=== PATIENT | male | born 1945 | race African-American/Black ===

== ENCOUNTER 2019-09-28 16:23 | Inpatient (IN) | payer MEDICARE, MEDICAID ==
[~2019-09-28] VITALS: Ht 175.3 cm; Wt 60.3 kg
[2019-09-28] MEDS ORDERED: SODIUM CHLORIDE 0.9% 1,000 ML IV ONE (16:45)
[2019-09-28 17:43] LABS: BASOPHILS % 0.4 % (0.0-2.0); EOSINOPHILS % 0.2 % (0.0-5.0); HEMOGLOBIN. 9.3 g/dL (14.0-18.0); LYMPHOCYTES % 10.7 % (20.0-50.0); MEAN CORPUSCULAR HEMOGLOBIN 33.1 pg (28.0-32.0); MEAN PLATELET VOLUME 7.8 fl (7.4-10.4); MONOCYTES % 7.1 % (2.0-8.0); NEUTROPHILS % 81.6 % (40.0-76.0); PLATELET 612 x1000/uL (130-400); RED BLOOD CELL COUNT 2.83 mill/uL (4.7-6.1); RED CELL DISTRIBUTION WIDTH 14.7 % (11.6-14.6)
[2019-09-28 17:44] LABS: CHLORIDE 114 mEq/L (98-107)
[2019-09-28 17:48] LABS: ETHANOL BLOOD < 10 mg/dL
[2019-09-28 17:48] LABS: CLARITY URINE CLOUDY (CLEAR); COLOR URINE YELLOW (YELLOW); KETONES URINE NEGATIVE (NEGATIVE); LEUKOCYTE ESTERASE URINE 2+ (NEGATIVE); NITRITE URINE POSITIVE (NEGATIVE); OCCULT BLOOD URINE 1+ (NEGATIVE); PROTEIN URINE 1+ (NEGATIVE); SPECIFIC GRAVITY URINE 1.021 (1.005-1.030)
[2019-09-28 17:57] LABS: *AMPHETAMINES SCREEN URINE NEGATIVE (NEGATIVE); *BARBITURATES SCREEN URINE NEGATIVE (NEGATIVE)
[2019-09-28 17:58] LABS: *BENZODIAZEPINES SCREEN URINE NEGATIVE (NEGATIVE); *COCAINE SCREEN URINE NEGATIVE (NEGATIVE); METHADONE URINE SCREEN NEGATIVE (NEGATIVE); OPIATES URINE SCREEN NEGATIVE (NEGATIVE)
[2019-09-28 17:59] LABS: CANNABINOID URINE SCREEN NEGATIVE (NEGATIVE); PHENCYCLIDINE URINE SCREEN NEGATIVE (NEGATIVE)
[2019-09-28] MEDS ORDERED: CEFTRIAXONE 1 G PREMIX 50 ML IV ONE (18:15)
[2019-09-28] MEDS ORDERED: NA PHOS,M-B/NA PHOS,DI-BA ENEMA 118ML PR PRN (19:15)
[2019-09-28] MEDS ORDERED: HYDROCODONE/ACETAMINOPHEN 10/325MG TABLET PO PRN (19:15)
[2019-09-28] MEDS ORDERED: ONDANSETRON HCL 4MG/2ML INJ IV PRN (19:15)
[2019-09-28] MEDS ORDERED: MAGNESIUM/ALUMINUM HYDROXIDE/SIMETHICONE 30ML UDC PO PRN (19:15)
[2019-09-28] MEDS ORDERED: LORAZEPAM 2MG/ML CPJ IV PRN (19:15)
[2019-09-28] MEDS ORDERED: IPRATROPIUM/ALBUTEROL 0.5-3(2.5)MG/3ML NEB NEB PRN (19:15)
[2019-09-28] MEDS ORDERED: HYDRALAZINE 20MG/ML VIAL IV PRN (19:15)
[2019-09-28] MEDS ORDERED: DOCUSATE SODIUM 100MG CAPSULE PO PRN (19:15)
[2019-09-28] MEDS ORDERED: GUAIFENESIN 200MG/10ML SUGAR FREE UDC PO PRN (19:15)
[2019-09-28] MEDS ORDERED: DIPHENHYDRAMINE 50MG/ML VIAL IV PRN (19:15)
[2019-09-28] MEDS ORDERED: CLONIDINE 0.1MG TABLET PO PRN (19:15)
[2019-09-28] MEDS ORDERED: CEFTRIAXONE 1 G PREMIX 50 ML IV SCH (19:15)
[2019-09-28] MEDS ORDERED: DEXTROSE 50% WATER 50ML SYRINGE IV PRN (19:15)
[2019-09-28] MEDS: INSULIN LISPRO 100 UNITS/ML SUBCUT SCH (21:00)
[2019-09-28] MEDS: BLOOD SUGAR DIAGNOSTIC STRIP TEST SCH (21:00)
[2019-09-28] MEDS: MORPHINE SULFATE 2 MG/ML CPJ (NOT FOR IM USE) IV PRN (21:28)
[2019-09-28] MEDS ORDERED: ASPIRIN 325MG EC TABLET PO ONE (22:15)
[2019-09-28 23:17] VITALS: BP 98/92
[2019-09-28 23:35] LABS: CREATINE KINASE MB FRACTION 4.7 ng/mL (0.5-3.6)
[2019-09-28 23:45] LABS: CREATINE KINASE 1203 IU/L (39-308)
[2019-09-28] MEDS: ENOXAPARIN 40MG/0.4ML SYR SUBCUT SCH (23:47)
[2019-09-28] MEDS: SODIUM CHLORIDE 0.9% INJ 3ML FLUSH IVF SCH (23:48)
[2019-09-29 04:00] VITALS: BP 104/65
[2019-09-29] MEDS: SODIUM CHLORIDE 0.9% INJ 3ML FLUSH IVF SCH ×3 (05:35→21:15)
[2019-09-29] MEDS: MORPHINE SULFATE 2 MG/ML CPJ (NOT FOR IM USE) IV PRN (06:13)
[2019-09-29 07:10] LABS: BASOPHILS % 0.7 % (0.0-2.0); EOSINOPHILS % 0.8 % (0.0-5.0); HEMATOCRIT. 22.8 % (42.0-52.0); HEMOGLOBIN. 7.5 g/dL (14.0-18.0); LYMPHOCYTES % 23.5 % (20.0-50.0); MEAN CORPUSCULAR HEMOGLOBIN 32.5 pg (28.0-32.0); MEAN CORPUSCULAR VOLUME 99.1 fL (80.0-94.0); MEAN PLATELET VOLUME 7.8 fl (7.4-10.4); MONOCYTES % 8.5 % (2.0-8.0); NEUTROPHILS % 66.5 % (40.0-76.0); PLATELET 480 x1000/uL (130-400); RED CELL DISTRIBUTION WIDTH 14.9 % (11.6-14.6)
[2019-09-29 07:20] LABS: CHLORIDE 113 mEq/L (98-107)
[2019-09-29 07:36] LABS: LDL CHOLESTEROL 82 mg/dL (5-100)
[2019-09-29 07:37] LABS: CREATINE KINASE 855 IU/L (39-308)
[2019-09-29 07:38] LABS: CREATINE KINASE MB FRACTION 2.4 ng/mL (0.5-3.6); HDL CHOLESTEROL 30 mg/dL (40-59); T4 FREE 1.05 ng/dL (0.76-1.46)
[2019-09-29] MEDS: BLOOD SUGAR DIAGNOSTIC STRIP TEST SCH ×4 (07:58→21:00)
[2019-09-29] MEDS: INSULIN LISPRO 100 UNITS/ML SUBCUT SCH ×4 (07:58→21:00)
[2019-09-29 08:00] VITALS: BP 107/65
[2019-09-29] MEDS ORDERED: INFLUENZA VIRUS VACCINE(AFLURIA) 0.5ML SYR IM ONE (08:00)
[2019-09-29] MEDS ORDERED: PNEUMOCOCCAL 23-VAL P-SAC VAC 0.5 ML IM ONE (08:00)
[2019-09-29] MEDS ORDERED: POTASSIUM CHLORIDE 20MEQ/PACKET PO SCH (10:00)
[2019-09-29] MEDS: CLOPIDOGREL 75MG TABLET PO SCH (11:30)
[2019-09-29] MEDS: QUETIAPINE FUMARATE 25MG TABLET PO SCH (11:30)
[2019-09-29 12:00] VITALS: BP 100/63
[2019-09-29 12:25] LABS: T4 FREE 1.07 ng/dL (0.76-1.46)
[2019-09-29 15:38] LABS: CREATINE KINASE 779 IU/L (39-308)
[2019-09-29 15:39] LABS: CREATINE KINASE MB FRACTION 1.9 ng/mL (0.5-3.6)
[2019-09-29 16:00] VITALS: BP 102/58
[2019-09-29] MEDS: CEFTRIAXONE 1 G PREMIX 50 ML IV SCH (17:52)
[2019-09-29 19:29] LABS: VITAMIN B12 SERUM 478 pg/mL (211-911)
[2019-09-29 20:00] VITALS: BP 94/48
[2019-09-29] MEDS: ENOXAPARIN 40MG/0.4ML SYR SUBCUT SCH (20:58)
[2019-09-30] VITALS: BP 105/65
[2019-09-30 00:52] LABS: CREATINE KINASE 638 IU/L (39-308); CREATINE KINASE MB FRACTION 1.1 ng/mL (0.5-3.6)
[2019-09-30 04:00] VITALS: BP 101/63
[2019-09-30] MEDS: SODIUM CHLORIDE 0.9% INJ 3ML FLUSH IVF SCH ×3 (05:44→21:39)
[2019-09-30] MEDS: MORPHINE SULFATE 2 MG/ML CPJ (NOT FOR IM USE) IV PRN (06:31)
[2019-09-30] MEDS: BLOOD SUGAR DIAGNOSTIC STRIP TEST SCH ×4 (07:39→21:35)
[2019-09-30] MEDS: INSULIN LISPRO 100 UNITS/ML SUBCUT SCH ×4 (07:40→21:00)
[2019-09-30 08:00] VITALS: BP 98/59
[2019-09-30 08:25] LABS: CREATINE KINASE 551 IU/L (39-308)
[2019-09-30] MEDS ORDERED: ASPIRIN 81MG TABLET PO SCH (09:00)
[2019-09-30] MEDS: CLOPIDOGREL 75MG TABLET PO SCH (09:41)
[2019-09-30] MEDS: QUETIAPINE FUMARATE 25MG TABLET PO SCH (09:41)
[2019-09-30 12:00] VITALS: BP 100/66
[2019-09-30 16:00] VITALS: BP 105/65
[2019-09-30] MEDS: CEFTRIAXONE 1 G PREMIX 50 ML IV SCH (18:03)
[2019-09-30 20:00] VITALS: BP 99/67
[2019-09-30] MEDS: ENOXAPARIN 40MG/0.4ML SYR SUBCUT SCH (21:39)
[2019-10-01] VITALS (9 sets, daily range): BP systolic 101–110; BP diastolic 56–70
[2019-10-01] MEDS: SODIUM CHLORIDE 0.9% INJ 3ML FLUSH IVF SCH ×3 (06:13→22:00)
[2019-10-01 07:11] LABS: BASOPHILS % 0.6 % (0.0-2.0); EOSINOPHILS % 1.2 % (0.0-5.0); HEMATOCRIT. 25.9 % (42.0-52.0); HEMOGLOBIN. 8.4 g/dL (14.0-18.0); LYMPHOCYTES % 18.1 % (20.0-50.0); MEAN CORPUSCULAR HEMOGLOBIN 31.7 pg (28.0-32.0); MEAN CORPUSCULAR VOLUME 97.1 fL (80.0-94.0); MEAN PLATELET VOLUME 8.2 fl (7.4-10.4); MONOCYTES % 6.4 % (2.0-8.0); NEUTROPHILS % 73.7 % (40.0-76.0); PLATELET 430 x1000/uL (130-400); RED BLOOD CELL COUNT 2.66 mill/uL (4.7-6.1); RED CELL DISTRIBUTION WIDTH 15.6 % (11.6-14.6)
[2019-10-01] MEDS: BLOOD SUGAR DIAGNOSTIC STRIP TEST SCH ×4 (07:42→21:00)
[2019-10-01] MEDS: INSULIN LISPRO 100 UNITS/ML SUBCUT SCH ×4 (07:43→21:00)
[2019-10-01] MEDS: QUETIAPINE FUMARATE 25MG TABLET PO SCH (09:21)
[2019-10-01] MEDS: CEFTRIAXONE 1 G PREMIX 50 ML IV SCH (17:46)
[2019-10-01] MEDS: ENOXAPARIN 40MG/0.4ML SYR SUBCUT SCH (22:05)
[2019-10-02 00:05] VITALS: BP 94/56
[2019-10-02] MEDS: BLOOD SUGAR DIAGNOSTIC STRIP TEST SCH ×4 (07:40→21:42)
[2019-10-02] MEDS: INSULIN LISPRO 100 UNITS/ML SUBCUT SCH ×4 (08:10→21:00)
[2019-10-02] MEDS: SODIUM CHLORIDE 0.9% INJ 3ML FLUSH IVF SCH ×3 (10:59→21:44)
[2019-10-02] MEDS: QUETIAPINE FUMARATE 25MG TABLET PO SCH (11:00)
[2019-10-02 12:00] VITALS: BP 100/60
[2019-10-02] MEDS: ACETAMINOPHEN 325MG TABLET PO PRN (12:04)
[2019-10-02 16:00] VITALS: BP 110/70
[2019-10-02] MEDS: CEFTRIAXONE 1 G PREMIX 50 ML IV SCH (18:12)
[2019-10-02 20:00] VITALS: BP 101/58
[2019-10-02] MEDS: ENOXAPARIN 40MG/0.4ML SYR SUBCUT SCH (21:42)
[2019-10-03] VITALS: BP 108/64
[2019-10-03 04:00] VITALS: BP 91/56
[2019-10-03] MEDS: SODIUM CHLORIDE 0.9% INJ 3ML FLUSH IVF SCH ×3 (05:54→20:25)
[2019-10-03] MEDS: INSULIN LISPRO 100 UNITS/ML SUBCUT SCH ×4 (05:54→21:00)
[2019-10-03] MEDS: BLOOD SUGAR DIAGNOSTIC STRIP TEST SCH ×4 (05:54→20:25)
[2019-10-03 08:00] VITALS: BP 111/73
[2019-10-03] MEDS: QUETIAPINE FUMARATE 25MG TABLET PO SCH (08:55)
[2019-10-03 10:04] LABS: CHLORIDE 107 mEq/L (98-107)
[2019-10-03 10:07] LABS: MEAN CORPUSCULAR HEMOGLOBIN 31.4 pg (28.0-32.0); MEAN CORPUSCULAR VOLUME 97.4 fL (80.0-94.0); MEAN PLATELET VOLUME 8.4 fl (7.4-10.4); PLATELET 394 x1000/uL (130-400); RED BLOOD CELL COUNT 3.21 mill/uL (4.7-6.1); RED CELL DISTRIBUTION WIDTH 15.8 % (11.6-14.6)
[2019-10-03 10:09] LABS: HEMATOCRIT. 31.3 % (42.0-52.0); HEMOGLOBIN. 10.1 g/dL (14.0-18.0)
[2019-10-03 10:12] LABS: HAPTOGLOBIN 110 mg/dL (30-200)
[2019-10-03 10:47] LABS: PLATELET ESTIMATE NORMAL
[2019-10-03 12:00] VITALS: BP 108/59
[2019-10-03] MEDS: LOPERAMIDE HCL 2MG CAPSULE PO PRN (12:27)
[2019-10-03] MEDS: ACETAMINOPHEN 325MG TABLET PO PRN ×2 (12:27→20:43)
[2019-10-03 16:00] VITALS: BP 99/48
[2019-10-03] MEDS ORDERED: POTASSIUM CHLORIDE 20MEQ TABLET SR PO NR (18:24)
[2019-10-03] MEDS: CEFTRIAXONE 1 G PREMIX 50 ML IV SCH (18:34)
[2019-10-03 20:00] VITALS: BP 99/57
[2019-10-03] MEDS: ENOXAPARIN 40MG/0.4ML SYR SUBCUT SCH (20:25)
[2019-10-03] MEDS: METRONIDAZOLE 500 MG PREMIX 100 ML IV SCH (22:00)
[2019-10-04] VITALS: BP 95/56
[2019-10-04] MEDS: METRONIDAZOLE 500 MG PREMIX 100 ML IV SCH ×3 (03:44→20:26)
[2019-10-04 04:00] VITALS: BP 92/48
[2019-10-04] MEDS: SODIUM CHLORIDE 0.9% INJ 3ML FLUSH IVF SCH ×3 (05:17→21:05)
[2019-10-04] MEDS: BLOOD SUGAR DIAGNOSTIC STRIP TEST SCH ×4 (07:40→21:05)
[2019-10-04 08:00] VITALS: BP 99/56
[2019-10-04] MEDS: INSULIN LISPRO 100 UNITS/ML SUBCUT SCH ×4 (08:10→21:00)
[2019-10-04] MEDS: QUETIAPINE FUMARATE 25MG TABLET PO SCH (09:06)
[2019-10-04 12:00] VITALS: BP 90/53
[2019-10-04] MEDS: VANCOMYCIN 750 MG PREMIX 150 ML IV SCH (13:32)
[2019-10-04 16:00] VITALS: BP 98/56
[2019-10-04] MEDS: CEFTRIAXONE 1 G PREMIX 50 ML IV SCH (17:17)
[2019-10-04 17:27] LABS: CHLORIDE 109 mEq/L (98-107)
[2019-10-04 20:00] VITALS: BP 93/52
[2019-10-04 20:57] LABS: HEMATOCRIT. 26.7 % (42.0-52.0); HEMOGLOBIN. 8.9 g/dL (14.0-18.0); MEAN CORPUSCULAR HEMOGLOBIN 31.8 pg (28.0-32.0); MEAN CORPUSCULAR VOLUME 95.7 fL (80.0-94.0); PLATELET 290 x1000/uL (130-400); RED BLOOD CELL COUNT 2.79 mill/uL (4.7-6.1); RED CELL DISTRIBUTION WIDTH 15.4 % (11.6-14.6)
[2019-10-04] MEDS: ACETAMINOPHEN 325MG TABLET PO PRN (21:02)
[2019-10-04] MEDS: ENOXAPARIN 40MG/0.4ML SYR SUBCUT SCH (21:04)
[2019-10-04 22:14] LABS: PLATELET ESTIMATE NORMAL
[2019-10-05] VITALS: BP 94/52
[2019-10-05] MEDS: VANCOMYCIN 750 MG PREMIX 150 ML IV SCH (00:54)
[2019-10-05 04:00] VITALS: BP 90/58
[2019-10-05] MEDS: METRONIDAZOLE 500 MG PREMIX 100 ML IV SCH ×3 (04:07→20:47)
[2019-10-05 04:08] LABS: OVA & PARASITE EXAM Final report (.)
[2019-10-05] MEDS: SODIUM CHLORIDE 0.9% INJ 3ML FLUSH IVF SCH ×3 (06:00→21:29)
[2019-10-05 08:00] VITALS: BP_SYST 82; BP_SYST 83; BP_DIAS 51; BP_DIAS 52
[2019-10-05] MEDS: INSULIN LISPRO 100 UNITS/ML SUBCUT SCH ×4 (08:10→21:00)
[2019-10-05] MEDS: BLOOD SUGAR DIAGNOSTIC STRIP TEST SCH ×4 (08:19→21:00)
[2019-10-05] MEDS: QUETIAPINE FUMARATE 25MG TABLET PO SCH (09:47)
[2019-10-05 12:00] VITALS: BP 87/49
[2019-10-05] MEDS: CEFTRIAXONE 1 G PREMIX 50 ML IV SCH (17:36)
[2019-10-05 20:00] VITALS: BP 107/58
[2019-10-05] MEDS: ENOXAPARIN 40MG/0.4ML SYR SUBCUT SCH (21:28)
[2019-10-05] MEDS: VANCOMYCIN 1 G PREMIX 200 ML IV SCH (23:41)
[2019-10-06] VITALS: BP 107/60
[2019-10-06] MEDS: METRONIDAZOLE 500 MG PREMIX 100 ML IV SCH ×3 (03:57→20:42)
[2019-10-06 04:00] VITALS: BP 90/56
[2019-10-06] MEDS: SODIUM CHLORIDE 0.9% INJ 3ML FLUSH IVF SCH ×3 (06:06→20:46)
[2019-10-06 07:14] LABS: CHLORIDE 112 mEq/L (98-107)
[2019-10-06] MEDS: BLOOD SUGAR DIAGNOSTIC STRIP TEST SCH ×4 (07:40→20:41)
[2019-10-06 08:00] VITALS: BP 90/50
[2019-10-06] MEDS: INSULIN LISPRO 100 UNITS/ML SUBCUT SCH ×4 (08:10→20:41)
[2019-10-06] MEDS ORDERED: SODIUM CHLORIDE 0.9% 250 ML IV ONE (08:30)
[2019-10-06] MEDS ORDERED: POTASSIUM CHLORIDE 20MEQ TABLET SR PO SCH (08:30)
[2019-10-06] MEDS: QUETIAPINE FUMARATE 25MG TABLET PO SCH (08:57)
[2019-10-06] MEDS: VANCOMYCIN 1 G PREMIX 200 ML IV SCH (10:22)
[2019-10-06 12:00] VITALS: BP 96/52
[2019-10-06 12:16] LABS: CLARITY URINE CLOUDY (CLEAR); COLOR URINE YELLOW (YELLOW); KETONES URINE NEGATIVE (NEGATIVE); LEUKOCYTE ESTERASE URINE 1+ (NEGATIVE); NITRITE URINE NEGATIVE (NEGATIVE); OCCULT BLOOD URINE NEGATIVE (NEGATIVE); PH URINE 5.5 (4.5-8.0); PROTEIN URINE TRACE (NEGATIVE); UROBILINOGEN URINE 0.2 E.U./dL (0.2-1.0)
[2019-10-06 16:00] VITALS: BP 98/60
[2019-10-06] MEDS: CEFTRIAXONE 1 G PREMIX 50 ML IV SCH (17:14)
[2019-10-06 20:00] VITALS: BP 96/59
[2019-10-06] MEDS: ENOXAPARIN 40MG/0.4ML SYR SUBCUT SCH (20:45)
[2019-10-06 21:43] LABS: BASOPHILS % 0.8 % (0.0-2.0); EOSINOPHILS % 2.2 % (0.0-5.0); HEMATOCRIT. 24.5 % (42.0-52.0); HEMOGLOBIN. 8.2 g/dL (14.0-18.0); LYMPHOCYTES % 12.2 % (20.0-50.0); MEAN CORPUSCULAR VOLUME 95.4 fL (80.0-94.0); MEAN PLATELET VOLUME 8.8 fl (7.4-10.4); MONOCYTES % 3.7 % (2.0-8.0); NEUTROPHILS % 81.1 % (40.0-76.0); PLATELET 260 x1000/uL (130-400); RED BLOOD CELL COUNT 2.57 mill/uL (4.7-6.1); RED CELL DISTRIBUTION WIDTH 15.8 % (11.6-14.6)
[2019-10-06 21:46] LABS: CHLORIDE 112 mEq/L (98-107)
[2019-10-07] VITALS: BP 95/53
[2019-10-07] MEDS: VANCOMYCIN 1 G PREMIX 200 ML IV SCH ×2 (00:21→11:27)
[2019-10-07 04:00] VITALS: BP 100/63
[2019-10-07] MEDS: METRONIDAZOLE 500 MG PREMIX 100 ML IV SCH ×2 (04:50→11:29)
[2019-10-07] MEDS: BLOOD SUGAR DIAGNOSTIC STRIP TEST SCH ×4 (06:24→20:06)
[2019-10-07] MEDS: INSULIN LISPRO 100 UNITS/ML SUBCUT SCH ×3 (06:24→20:06)
[2019-10-07 07:55] LABS: BASOPHILS % 0.6 % (0.0-2.0); EOSINOPHILS % 2.9 % (0.0-5.0); HEMATOCRIT. 23.7 % (42.0-52.0); HEMOGLOBIN. 7.8 g/dL (14.0-18.0); MEAN CORPUSCULAR HEMOGLOBIN 31.3 pg (28.0-32.0); MEAN CORPUSCULAR VOLUME 94.6 fL (80.0-94.0); MEAN PLATELET VOLUME 9.1 fl (7.4-10.4); MONOCYTES % 4.5 % (2.0-8.0); PLATELET 255 x1000/uL (130-400); RED CELL DISTRIBUTION WIDTH 15.9 % (11.6-14.6)
[2019-10-07 08:00] VITALS: BP 100/55
[2019-10-07 08:04] LABS: CHLORIDE 111 mEq/L (98-107)
[2019-10-07] MEDS: LOPERAMIDE HCL 2MG CAPSULE PO PRN (08:34)
[2019-10-07] MEDS: SODIUM CHLORIDE 0.9% INJ 3ML FLUSH IVF SCH ×2 (08:34→14:10)
[2019-10-07] MEDS: QUETIAPINE FUMARATE 25MG TABLET PO SCH (08:34)
[2019-10-07] MEDS ORDERED: POTASSIUM CHLORIDE 20MEQ TABLET SR PO SCH (11:15)
[2019-10-07 12:00] VITALS: BP 104/65
[2019-10-07] MEDS: VANCOMYCIN HCL 1000 MG/20 ML ORAL PO SCH ×3 (13:00→23:52)
[2019-10-07 16:00] VITALS: BP 100/60
[2019-10-07 20:00] VITALS: BP 98/63
[2019-10-07] MEDS: ENOXAPARIN 40MG/0.4ML SYR SUBCUT SCH (20:10)
[2019-10-08] VITALS: BP 103/66
[2019-10-08 04:00] VITALS: BP 96/64
[2019-10-08] MEDS: SODIUM CHLORIDE 0.9% INJ 3ML FLUSH IVF SCH (05:30)
[2019-10-08] MEDS: VANCOMYCIN HCL 1000 MG/20 ML ORAL PO SCH ×2 (05:30→11:31)
[2019-10-08 08:00] VITALS: BP 95/62
[2019-10-08] MEDS: BLOOD SUGAR DIAGNOSTIC STRIP TEST SCH ×2 (08:05→12:43)
[2019-10-08] MEDS: INSULIN LISPRO 100 UNITS/ML SUBCUT SCH ×2 (08:06→12:43)
[2019-10-08] MEDS: QUETIAPINE FUMARATE 25MG TABLET PO SCH (08:57)
[2019-10-08 12:00] VITALS: BP 97/62
[2019-10-08 12:46] VITALS: BP 105/65
== END 2019-10-08 14:18 | disposition home or self-care (01) | DRG 74 ==
LOC: ER 16:23 → 7WST 18:37 → EDBEDREQ 18:46 → ENRESERV 20:30
PROVIDERS: ADMIT Internal Medicine; ATTEND Internal Medicine
PROC: 30233N1 Transfusion of Nonautologous Red Blood Cells into Peripheral Vein, Percutaneous Approach (ICD-10-PCS; principal; 2019-10-01)
DX: G90.8 Other disorders of autonomic nervous system (principal); N39.0 Urinary tract infection, site not specified; M62.82 Rhabdomyolysis; I13.0 Hypertensive heart and chronic kidney disease with heart failure and stage 1 through stage 4 chronic kidney disease, or unspecified chronic kidney disease; I42.0 Dilated cardiomyopathy; I50.42 Chronic combined systolic (congestive) and diastolic (congestive) heart failure; E11.22 Type 2 diabetes mellitus with diabetic chronic kidney disease; E78.5 Hyperlipidemia, unspecified; E87.6 Hypokalemia; I25.10 Atherosclerotic heart disease of native coronary artery without angina pectoris; I45.10 Unspecified right bundle-branch block; J44.9 Chronic obstructive pulmonary disease, unspecified; N18.9 Chronic kidney disease, unspecified; D53.9 Nutritional anemia, unspecified; R32 Unspecified urinary incontinence; G89.29 Other chronic pain; F17.210 Nicotine dependence, cigarettes, uncomplicated; Z79.899 Other long term (current) drug therapy; Z95.1 Presence of aortocoronary bypass graft; Z86.73 Personal history of transient ischemic attack (TIA), and cerebral infarction without residual deficits
CPT/HCPCS: 36415; 70551; 71045; 80048; 80053; 80061; 80202; 80305; 80320; 81003; 82270; 82550; 82553; 82607; 82962; 83010; 83036; 83615; 83880; 84439; 84443; 84484; 85025; 85044; 85379; 86850; 86900; 86920; 87177; 87209; 87493; 90686; 90732; 93005; 93306; 93880; 93970; 95816; 96365; 97162; 99285; J0696; J1650; J2270; J2405; J3370; J3490; J7030; J7040; P9016; G0480

== ENCOUNTER 2020-04-29 01:24 | Inpatient (IN) | payer MEDICARE, MEDICAID ==
[~2020-04-29] VITALS: Ht 170.2 cm; Wt 65.4 kg
[2020-04-29] MEDS ORDERED: SODIUM CHLORIDE 0.9% 1,000 ML IV ONE (05:23)
[2020-04-29 06:01] LABS: BASOPHILS % 1.4 % (0.0-2.0); EOSINOPHILS % 5.1 % (0.0-5.0); HEMATOCRIT. 37.7 % (42.0-52.0); HEMOGLOBIN. 12.7 g/dL (14.0-18.0); LYMPHOCYTES % 52.6 % (20.0-50.0); MEAN CORPUSCULAR HEMOGLOBIN 34.8 pg (28.0-32.0); MEAN CORPUSCULAR VOLUME 102.9 fL (80.0-94.0); MEAN PLATELET VOLUME 8.5 fl (7.4-10.4); MONOCYTES % 14.3 % (2.0-8.0); NEUTROPHILS % 26.6 % (40.0-76.0); PLATELET 183 x1000/uL (130-400); RED BLOOD CELL COUNT 3.66 mill/uL (4.7-6.1); RED CELL DISTRIBUTION WIDTH 13.1 % (11.6-14.6)
[2020-04-29 06:04] LABS: CHLORIDE 112 mEq/L (98-107)
[2020-04-29] MEDS ORDERED: ASPIRIN 325MG EC TABLET PO ONE (07:15)
[2020-04-29] MEDS ORDERED: ACETAMINOPHEN 325MG TABLET PO PRN (09:00)
[2020-04-29] MEDS ORDERED: IPRATROPIUM/ALBUTEROL 0.5-3(2.5)MG/3ML NEB NEB PRN (09:00)
[2020-04-29] MEDS ORDERED: HYDROCODONE/ACETAMINOPHEN 5/325MG TABLET PO PRN (09:00)
[2020-04-29] MEDS ORDERED: CLONIDINE 0.1MG TABLET PO PRN (09:00)
[2020-04-29] MEDS ORDERED: DOCUSATE SODIUM 100MG CAPSULE PO PRN (09:00)
[2020-04-29] MEDS ORDERED: MAGNESIUM/ALUMINUM HYDROXIDE/SIMETHICONE 30ML UDC PO PRN (09:00)
[2020-04-29] MEDS: ENOXAPARIN 40MG/0.4ML SYR SUBCUT SCH (10:00)
[2020-04-29] MEDS: PANTOPRAZOLE SODIUM 40 MG/VIAL IV SCH (10:33)
[2020-04-29 11:22] LABS: CLARITY URINE CLEAR (CLEAR); COLOR URINE YELLOW (YELLOW); KETONES URINE NEGATIVE (NEGATIVE); LEUKOCYTE ESTERASE URINE 2+ (NEGATIVE); NITRITE URINE POSITIVE (NEGATIVE); OCCULT BLOOD URINE TRACE (NEGATIVE); PROTEIN URINE TRACE (NEGATIVE); SPECIFIC GRAVITY URINE 1.017 (1.005-1.030); UROBILINOGEN URINE 0.2 E.U./dL (0.2-1.0)
[2020-04-29 11:46] LABS: *AMPHETAMINES SCREEN URINE NEGATIVE (NEGATIVE); *BARBITURATES SCREEN URINE NEGATIVE (NEGATIVE)
[2020-04-29 11:47] LABS: *BENZODIAZEPINES SCREEN URINE NEGATIVE (NEGATIVE); *COCAINE SCREEN URINE NEGATIVE (NEGATIVE); METHADONE URINE SCREEN NEGATIVE (NEGATIVE); OPIATES URINE SCREEN NEGATIVE (NEGATIVE); PHENCYCLIDINE URINE SCREEN NEGATIVE (NEGATIVE)
[2020-04-29 11:48] LABS: CANNABINOID URINE SCREEN NEGATIVE (NEGATIVE)
[2020-04-29 15:39] LABS: CREATINE KINASE 347 IU/L (39-308)
[2020-04-29 19:27] LABS: T4 FREE 0.87 ng/dL (0.76-1.46)
[2020-04-29] MEDS ORDERED: IOHEXOL-350 100 ML BOTTLE ONE (22:52)
[2020-04-29 23:45] LABS: CREATINE KINASE 304 IU/L (39-308)
[2020-04-30] VITALS (13 sets, daily range): BP systolic 100–139; BP diastolic 68–96
[2020-04-30 07:16] LABS: BASOPHILS % 1.1 % (0.0-2.0); EOSINOPHILS % 1.6 % (0.0-5.0); HEMATOCRIT. 36.1 % (42.0-52.0); HEMOGLOBIN. 12.2 g/dL (14.0-18.0); LYMPHOCYTES % 27.6 % (20.0-50.0); MEAN CORPUSCULAR HEMOGLOBIN 34.8 pg (28.0-32.0); MEAN CORPUSCULAR VOLUME 102.7 fL (80.0-94.0); MEAN PLATELET VOLUME 9.3 fl (7.4-10.4); MONOCYTES % 10.2 % (2.0-8.0); NEUTROPHILS % 59.5 % (40.0-76.0); PLATELET 192 x1000/uL (130-400); RED BLOOD CELL COUNT 3.51 mill/uL (4.7-6.1)
[2020-04-30 07:33] LABS: CHLORIDE 112 mEq/L (98-107)
[2020-04-30 07:40] LABS: LDL CHOLESTEROL 103 mg/dL (5-100); PHOSPHORUS 2.9 mg/dL (2.5-4.9)
[2020-04-30 07:42] LABS: CREATINE KINASE 291 IU/L (39-308); HDL CHOLESTEROL 55 mg/dL (40-59)
[2020-04-30] MEDS: ASPIRIN 81MG TABLET PO SCH (08:57)
[2020-04-30] MEDS: PANTOPRAZOLE SODIUM 40 MG/VIAL IV SCH (08:57)
[2020-04-30] MEDS: ENOXAPARIN 40MG/0.4ML SYR SUBCUT SCH (08:58)
[2020-04-30] MEDS ORDERED: REGADENOSON 0.4 MG/5 ML IV SCH (10:30)
[2020-04-30] MEDS ORDERED: REGADENOSON 0.4 MG/5 ML IV ONE (11:28)
[2020-04-30] MEDS ORDERED: FLUTICASONE/VILANTEROL 200-25 BLST.W.DEV ORI SCH (12:00)
[2020-04-30] MEDS: CLOPIDOGREL 75MG TABLET PO SCH (15:44)
[2020-04-30] MEDS: CEFTRIAXONE 1 G PREMIX 50 ML IV SCH (15:44)
[2020-04-30] MEDS ORDERED: ATORVASTATIN CALCIUM 40MG TABLET PO SCH (21:00)
[2020-05-01] VITALS (9 sets, daily range): BP systolic 88–131; BP diastolic 28–88
[2020-05-01 05:38] LABS: CHLORIDE 109 mEq/L (98-107)
[2020-05-01 06:40] LABS: BASOPHILS % 0.9 % (0.0-2.0); EOSINOPHILS % 2.6 % (0.0-5.0); HEMATOCRIT. 37.9 % (42.0-52.0); LYMPHOCYTES % 34.5 % (20.0-50.0); MEAN CORPUSCULAR HEMOGLOBIN 35.2 pg (28.0-32.0); MEAN CORPUSCULAR VOLUME 102.7 fL (80.0-94.0); MEAN PLATELET VOLUME 9.8 fl (7.4-10.4); MONOCYTES % 10.3 % (2.0-8.0); NEUTROPHILS % 51.7 % (40.0-76.0); PLATELET 103 x1000/uL (130-400); RED BLOOD CELL COUNT 3.69 mill/uL (4.7-6.1); RED CELL DISTRIBUTION WIDTH 13.2 % (11.6-14.6)
[2020-05-01] MEDS ORDERED: FAMOTIDINE 20MG/2ML VIAL IV SCH (09:00)
[2020-05-01] MEDS: ASPIRIN 81MG TABLET PO SCH (09:04)
[2020-05-01] MEDS: CLOPIDOGREL 75MG TABLET PO SCH (09:04)
[2020-05-01] MEDS: ENOXAPARIN 40MG/0.4ML SYR SUBCUT SCH (09:04)
[2020-05-01] MEDS ORDERED: LEVO500T2 MT (10:06)
[2020-05-01] MEDS ORDERED: ASPI-1160 PO (10:07)
[2020-05-01] MEDS ORDERED: LOSA25TA26 MT (10:07)
[2020-05-01] MEDS ORDERED: CARV3.1242 MT (10:07)
[2020-05-01] MEDS: CEFTRIAXONE 1 G PREMIX 50 ML IV SCH (12:07)
== END 2020-05-01 20:00 | disposition home or self-care (01) | DRG 291 ==
LOC: ER 01:24 → MICUSO 08:42 → CANRESERV 19:41 → ENRESERV 19:41 → 3WST 04-30 00:39
PROVIDERS: ADMIT Internal Medicine; ATTEND Internal Medicine
PROC: 4A02XM4 Measurement of Cardiac Total Activity, External Approach (ICD-10-PCS; principal; 2020-04-30)
PROC: 3E033HZ Introduction of Radioactive Substance into Peripheral Vein, Percutaneous Approach (ICD-10-PCS; 2020-04-30)
DX: I11.0 Hypertensive heart disease with heart failure (principal); I50.21 Acute systolic (congestive) heart failure; N39.0 Urinary tract infection, site not specified; I43 Cardiomyopathy in diseases classified elsewhere; R07.89 Other chest pain; E87.8 Other disorders of electrolyte and fluid balance, not elsewhere classified; J44.9 Chronic obstructive pulmonary disease, unspecified; E78.5 Hyperlipidemia, unspecified; I25.10 Atherosclerotic heart disease of native coronary artery without angina pectoris; K40.90 Unilateral inguinal hernia, without obstruction or gangrene, not specified as recurrent; Z86.73 Personal history of transient ischemic attack (TIA), and cerebral infarction without residual deficits; Z87.891 Personal history of nicotine dependence; B96.20 Unspecified Escherichia coli [E. coli] as the cause of diseases classified elsewhere; I34.0 Nonrheumatic mitral (valve) insufficiency
CPT/HCPCS: 36415; 71045; 71275; 72170; 78452; 80048; 80053; 80061; 80305; 81003; 82550; 83036; 83735; 83880; 84100; 84439; 84443; 84484; 85025; 85379; 87077; 87186; 93005; 93017; 93306; 93970; 96374; 97162; 97166; 99285; A9500; C9113; J0696; J1650; J2785; J3490; J7030; Q9967

== ENCOUNTER 2023-02-01 13:18 | Emergency (ER) | payer MEDICARE, MEDICAID ==
[~2023-02-01] VITALS: Ht 182.9 cm; Wt 91.0 kg
[~2023-02-01 13:18] MED LIST: ASPI-1160 PO; CARV3.1242 MT; LEVO500T2 MT; LOSA25TA26 MT
[2023-02-01 13:22] VITALS: BP 116/84
[2023-02-01 16:12] LABS: CHLORIDE 103 mEq/L (98-107)
[2023-02-01 16:20] LABS: HEMATOCRIT. 34.2 % (42.0-52.0); HEMOGLOBIN. 11.5 g/dL (14.0-18.0); MEAN CORPUSCULAR HEMOGLOBIN 32.2 pg (28.0-32.0); MEAN CORPUSCULAR VOLUME 95.3 fL (80.0-94.0); MEAN PLATELET VOLUME 8.7 fl (7.4-10.4); PLATELET 211 x1000/uL (130-400); RED BLOOD CELL COUNT 3.59 mill/uL (4.7-6.1); RED CELL DISTRIBUTION WIDTH 14.2 % (11.6-14.6)
[2023-02-01 22:07] LABS: PLATELET ESTIMATE NORMAL
== END 2023-02-01 18:32 | disposition home or self-care (01) ==
LOC: ER 13:18
DX: R56.9 Unspecified convulsions (principal); I10 Essential (primary) hypertension
CPT/HCPCS: 36415; 71045; 80053; 85025; 93005; 99285